=== PATIENT | male | born 1995 | race African-American/Black ===

== ENCOUNTER 2019-01-14 21:11 | Emergency (ER) | payer OTHER ==
[~2019-01-14] VITALS: Ht 180.3 cm; Wt 90.7 kg
[~2019-01-14 21:11] MED LIST: FLEXERIL PO; IBUPROFEN 600600 M1 PO; IBUPROFEN 800800 MG PO; NOHOMEMEDICATIONS; NORCO 5-325 TA1 EACH PO
[2019-01-14] MEDS ORDERED: ERYTHROMYCIN E3.5 G3 OPHTHALMIC (21:57)
[2019-01-14 22:43] VITALS: BP 122/57
== END 2019-01-14 22:45 | disposition home or self-care (01) ==
LOC: ER 21:11
DX: H10.9 Unspecified conjunctivitis (principal); F17.210 Nicotine dependence, cigarettes, uncomplicated